=== PATIENT | female | born 1990 | race Caucasian/White ===

== ENCOUNTER 2021-03-26 08:48 | Inpatient (IN) | payer BC ==
[~2021-03-26 08:48] MED LIST: PROPOFOL 200 MG/20 ML VIAL ONE; Succinylcholine 200 MG/10 ml SYRINGE FS ONE
[2021-03-26 19:29] VITALS: BMI 35.5
[2021-03-26] MEDS ORDERED: Ibuprofen 800 MG TAB PO PRN (19:36)
[2021-03-26] MEDS ORDERED: Promethazine HCl 25 MG/ML VIAL IM PRN (19:36)
[2021-03-26] MEDS ORDERED: Methylergonovine 0.2 MG/ML VIAL IM PRN (19:36)
[2021-03-26] MEDS ORDERED: Acetaminophen 500 MG TAB PO PRN (19:36)
[2021-03-26] MEDS ORDERED: Misoprostol 200 MCG TAB PR PRN (19:36)
[2021-03-26] MEDS ORDERED: Carboprost 250 MCG/ML AMP IM PRN (19:36)
[2021-03-26] MEDS ORDERED: hydrALAZINE 20 MG/ML VIAL SLOW IVP PRN (19:36)
[2021-03-26] MEDS ORDERED: Ondansetron PF 4 MG/2 ML Vial IVP PRN (19:36)
[2021-03-26] MEDS ORDERED: Butorphanol Tartrate 1 MG/ML VIAL SLOW IVP PRN (19:36)
[2021-03-26] MEDS ORDERED: HYDROcodone/Acetaminophen 5/325 mg Tablet PO PRN (19:36)
[2021-03-26] MEDS ORDERED: Lidocaine 1% (PF) 30 ML VIAL SC PRN (19:36)
[2021-03-26] MEDS ORDERED: Diphenoxylate HCl/Atropine Tablet PO PRN (19:36)
[2021-03-26] MEDS ORDERED: NS w/ Oxytocin 30 units 500 ML IVPB SCH (19:45)
[2021-03-26] MEDS ORDERED: NS w/ Oxytocin 30 units 500 ML IV SCH (19:45)
[2021-03-26 20:25] LABS: Hemoglobin 11.3 g/dL (12.0-15.5); Mean Corpuscular HGB CONC 32.7 g/dL (32.0-36.0); Mean Corpuscular Hemoglobin 28.9 pg (27.0-33.0); Mean Corpuscular Volume 88.5 fl (81.6-98.3); Mean Platelet Volume 9.8 fl (7.4-10.4); Platelet Count 274 10x3/uL (150-450); RBC Distribution Width 13.3 % (11.5-14.5); Red Blood Cell (RBC) Count 3.91 10x6/uL (3.90-5.03); White Blood Cell (WBC) Count 8.8 10x3/uL (3.5-10.5)
[2021-03-26 20:40] LABS: ALT (SGPT) 16 U/L (8-55); AST (SGOT) 23 U/L (5-34); Albumin 3.3 g/dL (3.5-5.0); Alkaline Phosphatase 192 U/L (40-110); Anion Gap 16 mmol/L (10-20); BUN (Urea Nitrogen) 8 mg/dL (7.0-18.7); Bilirubin, Total 0.4 mg/dL (0.2-1.2); Calc. Creatinine Clearance 167 mL/min (70-130); Calcium 9.9 mg/dL (7.8-10.44); Carbon Dioxide 19 mmol/L (22-29); Chloride 105 mmol/L (98-107); Globulin 3.4 g/dL (2.4-3.5); Glucose 195 mg/dL (70-105); Potassium 3.7 mmol/L (3.5-5.1); Protein, Total 6.7 g/dL (6.0-8.3); Sodium 136 mmol/L (136-145)
[2021-03-26 20:59] LABS: Syphilis Antibody Nonreactive (Nonreactive); Syphilis Antibody Index 0.04 S/CO (<1.00 Non-Reactive)
[2021-03-26 21:00] LABS: Hep B Surf Ag Non-Reactive S/CO (NonReactive)
[2021-03-26 21:23] LABS: HBSAg Index 0.21 S/CO (0-0.99)
[2021-03-27] MEDS: Lactated Ringer's 1,000 ML IV SCH ×3 (08:45→17:51)
[2021-03-27] MEDS ORDERED: Azithromycin 500 MG VIAL ONE (22:37)
[2021-03-27] MEDS ORDERED: Morphine PF 10 MG/10 ML VIAL ONE (22:51)
[2021-03-27] MEDS ORDERED: Phenylephrine 40 MG/NS 250 ML 250 ML ONE (22:51)
[2021-03-27] MEDS ORDERED: Dexamethasone 4 mg/ml Vial ONE (22:52)
[2021-03-27] MEDS ORDERED: Ondansetron PF 4 MG/2 ML Vial ONE (22:52)
[2021-03-27] MEDS ORDERED: Oxytocin 10 UNITS/ML VIAL ONE (22:52)
[2021-03-27] MEDS ORDERED: Lidocaine 1% (PF) 30 ML VIAL ONE (23:31)
[2021-03-27] MEDS ORDERED: Bupivacaine 0.25% HCL 30 ML VIAL ONE (23:33)
[2021-03-27] MEDS ORDERED: Communication Order-Pharmacy FS SCH ×2 (23:45)
[2021-03-27] MEDS ORDERED: Ketorolac Tromethamine 30 MG/ML VIAL IVP SCH (23:45)
[2021-03-27] MEDS ORDERED: Fentanyl 100 MCG/2 ML VIAL SLOW IVP PRN (23:46)
[2021-03-27] MEDS ORDERED: diphenhydrAMINE 50 MG/ML VIAL IM PRN (23:46)
[2021-03-27] MEDS ORDERED: Hydrocerin (Eucerin) Cream 120 gm Jar TOP PRN (23:46)
[2021-03-27] MEDS ORDERED: Naloxone HCl 0.4 mg/ml Vial IV PRN ×2 (23:46)
[2021-03-27] MEDS ORDERED: Ondansetron HCl/PF 4 MG/2 ML Vial IVP PRN (23:46)
[2021-03-27] MEDS ORDERED: Promethazine HCl 25 MG SUPP PR PRN (23:46)
[2021-03-27] MEDS ORDERED: Meperidine HCl/PF 25 MG/ML VIAL SLOW IVP PRN (23:46)
[2021-03-27] MEDS ORDERED: L&D-Morphine 4 MG/ML VIAL SLOW IVP PRN (23:46)
[2021-03-27] MEDS ORDERED: Zolpidem Tartrate 5 MG TAB PO PRN (23:46)
[2021-03-27] MEDS ORDERED: Ondansetron PF 4 MG/2 ML Vial IVP PRN ×2 (23:46)
[2021-03-27] MEDS ORDERED: Naloxone HCl 0.4 mg/ml Vial IVP PRN ×2 (23:46)
[2021-03-27] MEDS ORDERED: Ketorolac Tromethamine 30 MG/ML VIAL IVP PRN (23:46)
[2021-03-27] MEDS ORDERED: Promethazine HCl 25 MG/ML VIAL IM PRN ×2 (23:46)
[2021-03-27] MEDS ORDERED: diphenhydrAMINE 25 MG CAP PO PRN (23:46)
[2021-03-27] MEDS ORDERED: diphenhydrAMINE 50 MG/ML VIAL IVP PRN ×2 (23:46)
[2021-03-27] MEDS ORDERED: Fentanyl 100 MCG/2 ML VIAL ONE (23:53)
[2021-03-27] MEDS ORDERED: fentaNYL Citrate/PF PCA SYRING 50 ML IV PRN (23:59)
[2021-03-28] MEDS ORDERED: Azithromycin 500 MG in Sodium Chloride 0.9% 250 ML 250 ML IVPB SCH (00:30)
[2021-03-28] MEDS ORDERED: CEFAZOLIN 2 GM in Premix Bag 1 BAG IVPB SCH (00:30)
[2021-03-28] MEDS ORDERED: Zolpidem Tartrate 5 MG TAB PO PRN ×2 (01:53→02:39)
[2021-03-28] MEDS ORDERED: Promethazine HCl 25 MG/ML VIAL IM PRN (02:39)
[2021-03-28] MEDS ORDERED: HYDROcodone/Acetaminophen 5/325 mg Tablet PO PRN (02:39)
[2021-03-28] MEDS ORDERED: Boostrix 0.5 ML (Tdap) VIAL IM ONE (02:39)
[2021-03-28] MEDS ORDERED: diphenhydrAMINE 25 MG CAP PO PRN (02:39)
[2021-03-28] MEDS ORDERED: Bisacodyl 10 MG SUPP PR PRN (02:39)
[2021-03-28] MEDS ORDERED: Acetaminophen 325 MG TAB PO PRN (02:39)
[2021-03-28] MEDS ORDERED: Ondansetron PF 4 MG/2 ML Vial IVP PRN (02:39)
[2021-03-28] MEDS ORDERED: Lanolin Ointment 7 GM TUBE TOP PRN (02:39)
[2021-03-28] MEDS ORDERED: hydrALAZINE 20 MG/ML VIAL SLOW IVP PRN (02:39)
[2021-03-28 06:10] LABS: Hemoglobin 10.9 g/dL (12.0-15.5); Mean Corpuscular Hemoglobin 29.8 pg (27.0-33.0); Mean Corpuscular Volume 87.7 fl (81.6-98.3); Platelet Count 235 10x3/uL (150-450); RBC Distribution Width 13.3 % (11.5-14.5); Red Blood Cell (RBC) Count 3.66 10x6/uL (3.90-5.03); White Blood Cell (WBC) Count 14.3 10x3/uL (3.5-10.5)
[2021-03-28] MEDS: Docusate Calcium (SURFAK) 240 MG CAP PO SCH ×2 (08:48→20:15)
[2021-03-28] MEDS: Labetalol HCl 200 MG TAB PO SCH ×2 (08:48→20:16)
[2021-03-28] MEDS: Prenatal Vitamin 1 TAB PO SCH (08:48)
[2021-03-28] MEDS: Ferrous Sulfate 325 MG TAB PO SCH ×2 (08:48→20:15)
[2021-03-28] MEDS: HYDROcodone/Acetaminophen 5/325 mg Tablet PO PRN ×2 (13:27→17:58)
[2021-03-28] MEDS: Simethicone Chewable 80 MG TAB PO PRN ×2 (13:28→17:58)
[2021-03-28] MEDS: Lactated Ringer's 1,000 ML IV SCH (17:21)
[2021-03-29] MEDS: Ibuprofen 800 MG TAB PO SCH ×2 (05:12→14:42)
[2021-03-29] MEDS: Prenatal Vitamin 1 TAB PO SCH (08:49)
[2021-03-29] MEDS: Simethicone Chewable 80 MG TAB PO PRN (08:49)
[2021-03-29] MEDS: Docusate Calcium (SURFAK) 240 MG CAP PO SCH (08:49)
[2021-03-29] MEDS: Ferrous Sulfate 325 MG TAB PO SCH (08:50)
[2021-03-29] MEDS: Labetalol HCl 200 MG TAB PO SCH (08:54)
[2021-03-29 11:44] VITALS: BP 113/71; TEMP 98.1
== END 2021-03-29 18:10 | disposition home or self-care (01) | DRG 788 ==
LOC: CSHLD 19:02 → CSHPP 03-28 03:15 → EDSTATUS 04-07 08:46
PROVIDERS: ADMIT Student in an Organized Health Care Education/Training Program; ATTEND Student in an Organized Health Care Education/Training Program
PROC: 0U7C7ZZ Dilation of Cervix, Via Natural or Artificial Opening (ICD-10-PCS; 2021-03-26)
PROC: 3E0P7VZ Introduction of Hormone into Female Reproductive, Via Natural or Artificial Opening (ICD-10-PCS; 2021-03-26)
PROC: 3E033VJ Introduction of Other Hormone into Peripheral Vein, Percutaneous Approach (ICD-10-PCS; 2021-03-26)
PROC: 10D00Z1 Extraction of Products of Conception, Low, Open Approach (ICD-10-PCS; principal; 2021-03-28)
PROC: 3E0234Z Introduction of Serum, Toxoid and Vaccine into Muscle, Percutaneous Approach (ICD-10-PCS; 2021-03-28)
DX: O10.92 Unspecified pre-existing hypertension complicating childbirth (principal); Z3A.38 38 weeks gestation of pregnancy; Z37.0 Single live birth; O26.893 Other specified pregnancy related conditions, third trimester; Z67.41 Type O blood, Rh negative; O61.0 Failed medical induction of labor; O34.211 Maternal care for low transverse scar from previous cesarean delivery
CPT/HCPCS: 36415; 36416; 51702; 80053; 85027; 85461; 86780; 86850; 86870; 86900; 86901; 87340; 90384; 96372; J1100; J2274; J2405; J2590; J2704; J3010; J7120; S0020; U0003; U0005